=== PATIENT | female | born 2000 ===

== ENCOUNTER 2021-05-15 17:38 | Emergency (ER) | payer BC ==
[~2021-05-15] VITALS: Ht 157.5 cm; Wt 65.0 kg
[2021-05-15 18:04] VITALS: TEMP 98.5
[2021-05-15] MEDS ORDERED: PROVENTIL0.09 MG/A1 IH (19:30)
[2021-05-15 19:35] VITALS: BP 126/74; PULSE 75
== END 2021-05-15 19:35 | disposition home or self-care (01) ==
LOC: COL.ER 17:38
DX: J06.9 Acute upper respiratory infection, unspecified (principal); J45.909 Unspecified asthma, uncomplicated; Z20.822 Contact with and (suspected) exposure to COVID-19